=== PATIENT | male | born 1945 | race Caucasian/White ===

== ENCOUNTER → 2016-05-05 | Outpatient (CLI) | payer OTHER | LOC: KOH-I 10:37 | DX: R05 Cough (principal); J98.4 Other disorders of lung | CPT/HCPCS: 71020 ==

== ENCOUNTER → 2016-05-09 | Outpatient (CLI) | payer OTHER | LOC: ECHO 12:12 | DX: I50.9 Heart failure, unspecified (principal); I27.2 Other secondary pulmonary hypertension | CPT/HCPCS: ECHO; 93306 ==